=== PATIENT | male | born 1990 | race Caucasian/White ===

== ENCOUNTER → 2018-12-24 | Outpatient (CLI) | payer BC ==
[~2018-12-24] MED LIST: IPRA30SP NS; NAPR1TAB PO; OMEP-83 PO; PRD20T PO; SCR1T1 PO
--- NOTE | 2018-12-24 16:04 | Diagnostic Imaging Report ---
INDICATION: Worsening neck pain over the last two years. TIME OF EXAM: 01:53 p.m. FINDINGS: Three views of cervical spine were obtained. There is straightening of the normal cervical lordotic curvature. There is degenerative disc disease at C5-C6 level with disc space narrowing. Prevertebral tissues are normal. Odontoid appears intact. No fractures are seen. IMPRESSION: C5-C6 degenerative disc disease and mild straightening. No acute bony abnormality is detected. Dictated by: Dictated on workstation # [id number]
== END ==
LOC: RAD 13:42
PROVIDERS: ATTEND Nurse Practitioner Family
DX: M50.322 Other cervical disc degeneration at C5-C6 level (principal)
CPT/HCPCS: 72040

== ENCOUNTER → 2019-04-17 | Emergency (ER) | payer BC | END | disposition left against medical advice (07) | LOC: EDUNIT# 20:37 → ER 20:38 | DX: F41.0 Panic disorder [episodic paroxysmal anxiety] (principal) ==